=== PATIENT | female | born 1950 | race Two or more races ===

== ENCOUNTER → 2017-02-10 12:41 | Outpatient (CLI) | payer MEDICARE, OTHER ==
[2010-04-10 11:30] VITALS: BMI 21.3
== END | disposition home or self-care (01) ==
LOC: D.CT 02-07 15:00
DX: R22.1 Localized swelling, mass and lump, neck (principal)

== ENCOUNTER → 2017-02-18 16:53 | Outpatient (CLI) | payer MEDICARE, OTHER ==
[2010-04-10 11:30] VITALS: BMI 21.3
== END | disposition home or self-care (01) ==
LOC: D.MAMMO 01-24 13:15
DX: Z12.31 Encounter for screening mammogram for malignant neoplasm of breast (principal)